=== PATIENT | female | born 1935 | race Caucasian/White ===

== ENCOUNTER → 2017-07-18 12:33 | Outpatient (CLI) | payer MEDICARE, SELFPAY ==
--- NOTE | 2017-07-18 12:40 | CA_ITS ---
PROCEDURE: 2-D M-mode and color Doppler study INDICATIONS FOR THE TEST: Chest pain COPD Heart Murmur Tobacco Smoking Palpitations Fatigue Syncope Edema HypertensionXDiabetes Mellitus Rheumatic Fever SOB MATAMOROS Obesity HyperlipidemiaX Family History HD Additional History PATIENT INFORMATION HEIGHT: 65 WEIGHT:115 GENDER: Female B/P:125/60 2-D/M-MODE INTERPRETATION: 2-D MEASUREMENTS OBSERVED VALUES IN CMS Right Ventricular Dimension (RVDd) 1.5 Interventricular Septum (Thickness)(IVsd) .8 Left Ventricular Internal Dimensions(LVIDd) 5.6 Left Ventricular Posterior Wall (Thickness)(LVPWd) .8 Aortic Root 3.0 Aortic Cusp Separation 1.6 Left Atrial Dimensions (LAD) 3.2 2D 1. Left atrium is moderately enlarged, left ventricle is normal size, there is mild qualitative concentric left ventricular hypertrophy, visually estimated ejection fraction 55% with no obvious regional wall motion abnormality. 2. The right atrium is moderately enlarged, right ventricle is mildly dilated with normal contractility. 3. The aortic valve is thickened and calcified leaflet continue to display good mobility. 4. The mitral and tricuspid valve leaflets are minimally thickened. 5. The pulmonic valve is poorly visualized. 6. No significant pericardial effusion noted. DOPPLER INTERROGATION: Doppler interrogation of the aortic, mitral and tricuspid valvular presence of moderate aortic, moderate mitral and moderate tricuspid regurgitation, calculated right ventricular systolic pressure is 45 to 50 mmHg consistent with moderate pulmonary hypertension, diastolic parameters are inconclusive. CONCLUSION: 1. Moderate biatrial enlargement, normal left ventricular size, mild concentric left ventricular hypertrophy, visually estimated ejection fraction 55% with no obvious regional wall motion abnormality, diastolic parameters are inconclusive. 2. Moderate aortic, moderate mitral and mild tricuspid regurgitation, calculated right ventricular systolic pressure is 45 to 50 mmHg consistent with moderate pulmonary hypertension 3. No significant pericardial effusion noted.
== END ==
PROVIDERS: Family Provider Internal Medicine; PCP Internal Medicine; Visit Provider Physician Assistant
DX: I35.0 Nonrheumatic aortic (valve) stenosis (principal)
CPT/HCPCS: 93306

== ENCOUNTER 2017-07-21 08:00 | Outpatient (RCR) | payer MEDICARE, SELFPAY ==
--- NOTE | 2017-06-29 08:44 | HMH.RHREAS ---
Rehab Reassessment Rehab OP Re-assessment Start: 06/29/17 08:36 Freq: Status: Active Protocol: Document 06/29/17 08:36 ITALIA (Rec: 06/29/17 08:44 ITALIA [id number]) Electronically Signed By Erlinda Doll OT 06/29/17 08:36 Rehab Re-assessment Subjective Subjective I see an improvement that's for sure. Objective Objective Notes Pt continues to be seen for skilled OT 2x's a week. Pt engages in right shoulder AROM /AAROM/Strengthening exercises each session. Pt also receives modalities such as IFC e-stim to help decrease pain and inflammation. Assessment Progress Assessment Progressing as Expected Assessment Notes Pt's pain has improved significantly. Pt reports pain only at 1/10. Pt's AROM has also improved at right shoulder compared to initial evaluation. MMT has mostly stayed the same. Will continue to work towards increasing strength to hopefully maintain improvements. Patient goals met N/A Goals Not Met Some AROM goals and MMT goals for right shoulder Revised Goals Right Shoulder MMT Goal: Flexion: 5- Abduction: 5- ER: 5- IR: 5- Right Shoulder AROM Goal Flexion: 160 degrees Abduction: 160 degrees (met) ER: 90 degrees IR: 80 degrees Plan Plan Continue with OT Plan of care. Frequency of Therapy 2 times a week Duration of therapy 4 more weeks Time and Billing Re-Eval Time 15 Re-Eval Billing Units 1 PHYSICIAN CERTIFICATION: I certify the specified therapy services for Kendra Gabriel are required, authorized, and reviewed every 30 days.
== END 2017-07-21 08:01 | disposition home or self-care (01) ==
LOC: OT 08:00
PROVIDERS: Family Provider Internal Medicine; PCP Internal Medicine; Visit Provider Internal Medicine
DX: M75.51 Bursitis of right shoulder (principal)
CPT/HCPCS: 97014; 97110; 97164; G0283

== ENCOUNTER → 2019-02-12 10:50 | Outpatient (CLI) | payer MEDICARE, SELFPAY ==
--- NOTE | 2019-02-12 10:57 | XR_ITS ---
PROCEDURE: XR CHEST 2V CLINICAL HISTORY: CHF, MODERATE TO SEVERE AORTIC REGURGITATION COMPARISON: ABDPELW/O CT ABD PELVIS W/O CONTRAST from 01/01/2015 CXR CHEST(2 VIEWS-NOT PORTABLE) from 08/04/2015 CXR CHEST(2 VIEWS-NOT PORTABLE) from 07/12/2016 FINDINGS: Mild cardiomegaly without failure. No lobar consolidation or collapse. Nodular opacity is present in the right mid lung and may be due to summation density from overlapping vessels or stable right midlung nodule unchanged from 08/04/2015. Minimal atelectatic changes are present in the left lung base. There is an S shaped curvature of the thoracic spine with degenerative change. No acute bony abnormalities. IMPRESSION: Cardiomegaly with chronic changes, no acute finding Dictated by: Terrence Bear MD 02/12/2019 15:12 Electronically signed by Terrence Bear MD in [place] 02/12/2019 15:12
--- NOTE | 2019-02-12 11:21 | ECG_ITS ---
APPROVED REPORT Exam: Resting ECG HR:61 bpm ECG Measurements Heart Rate [address] 114 P 70 QRSd 106 QRS 77 QT 406 T 72 QTc 408 <Conclusion> Normal sinus rhythm Incomplete right bundle branch block Voltage criteria for left ventricular hypertrophy Abnormal ECG Electronically signed by : Jose Ramon Cruz, 02/12/2019 16:15:04
== END ==
PROVIDERS: PCP Internal Medicine; Visit Provider Internal Medicine
DX: I50.9 Heart failure, unspecified (principal); I35.1 Nonrheumatic aortic (valve) insufficiency
CPT/HCPCS: 71046; 93005

== ENCOUNTER → 2019-02-19 12:49 | Outpatient (CLI) | payer MEDICARE, SELFPAY ==
--- NOTE | 2019-02-19 12:51 | XR_ITS ---
PROCEDURE: XR DEXA AXIAL SKELETON CLINICAL HISTORY: POST MENAPAUSAL COMPARISON: No exams were available for comparison FINDINGS: L1-L4 density is 1.064 grams/centimeters sq with a T-score -1.0. Total right hip density is 0.735 grams/centimeters sq with T-score -2.2 consistent with osteopenia. IMPRESSION: Osteopenia with moderate fracture risk. Treatment advised. Suggest follow-up exam February 2021. Dictated by: Terrence Bear MD 02/20/2019 04:34 Electronically signed by Terrence Bear MD in [place] 02/20/2019 04:34
== END ==
PROVIDERS: PCP Internal Medicine; Visit Provider Internal Medicine
DX: Z78.0 Asymptomatic menopausal state (principal)
CPT/HCPCS: 77080

== ENCOUNTER → 2019-03-02 12:42 | Outpatient (CLI) | payer MEDICARE, SELFPAY ==
--- NOTE | 2019-03-02 12:55 | CA_ITS ---
APPROVED REPORT Right Of Way Worker: CT Laterality: Bilateral Study Quality: Good Indications: right carotid bruit Risk Factors Hypertension: Hyperlipidemia Doppler Spectral Velocity Analysis ECA (R) 44.10/ cm/s ECA (L) 56.50/ cm/s dICA (R) 63.10/21.60 cm/s dICA (L) 66.40/16.90 cm/s Simone (R) 54.40/17.30 cm/s Simone (L) 73.10/18.50 cm/s pICA (R) 51.90/15.40 cm/s pICA (L) 48.30/12.20 cm/s dCCA (R) 60.10/17.10 cm/s dCCA (L) 55.00/12.80 cm/s pCCA (R) 66.00/11.80 cm/s pCCA (L) 82.50/15.70 cm/s Vert (R) 61.80/ cm/s Vert (L) 41.30/ cm/s ICA/CCA 1.05 ICA/CCA 1.33 Findings Duplex evaluation demonstrates stenosis of the right proximal internal carotid artery <20% with PSV <140 cm/sec, EDV <100 cm/sec, and IC/CC Ratio <4.0 Duplex evaluation demonstrates stenosis of the left proximal internal carotid artery <20% with PSV <140 cm/sec, EDV <100 cm/sec, and IC/CC Ratio <4.0. Duplex evaluation demonstrates antegrade flow of the bilateral Vertebral Arteries. Conclusion Duplex evaluation demonstrates stenosis of the right proximal internal carotid artery <20% with PSV <140 cm/sec, EDV <100 cm/sec, and IC/CC Ratio <4.0 Duplex evaluation demonstrates stenosis of the left proximal internal carotid artery <20% with PSV <140 cm/sec, EDV <100 cm/sec, and IC/CC Ratio <4.0. Duplex evaluation demonstrates antegrade flow of the bilateral Vertebral Arteries. Electronically signed by : Tarun Villela, 03/05/2019 13:46:30
--- NOTE | 2019-03-02 12:55 | CA_ITS ---
APPROVED REPORT EXAM: Comprehensive 2D, Doppler, and color-flow Echocardiogram Metal Turner: Justine Hernandez RT(R) Ht: 5 ft 0 in Wt: 112lbs BSA: 1.46 BP: 160/67 mmHg Indications: Murmur, Shortness of Breath, Peripheral Edema, Hyperlipidemia, Hypertension/HDD 2D Dimensions IVSd 0.90 cm F: 0.6-1.0 LVEF (Visual) 55.90 % PWd 1.00 cm F: 0.6 - 1.0 LVDd 3.20 cm F: 3.9 - 5.3 LVDs 2.30 cm F: 2.2 - 3.5 LVOT 2.10 cm (M/F) 1.5-2.5 M-Mode Dimensions LA Diam 3.40 cm (1.9-4.0) Ao Diam 2.50 cm (2.0-3.7) AV Cusp 1.50 cm (1.5-2.6) LV Diastology E/A Ratio 0.6 Aortic Valve LVOT Max 104.00 (70-110 cm/s) LVOT VTI 18.30 cm AoV Peak Joss. 160.00 (50-130 cm/s) AO Peak GR. 10.00 mmHg AO Mean GR. 5.00 (<5 mmHg) AO VTI 29.80 (18-25 cm) AIMEE (VTI) 2.12 (2.5-4.5 cm2) Mitral Valve MV E Max Joss. 48.90 (40-130 cm/s) MV A Velocity 75.80 (40-130 cm/s) E/A Ratio 0.60 Tricuspid Valve TR P. Velocity 256.00 cm/s RAP Estimate 15.00 mmHg RVSP 41.00 mmHg Left Ventricle Left atrium is mildly enlarged, left ventricle is normal size, mild concentric left ventricular hypertrophy, visually estimated ejection fraction 55% with no regional wall motion abnormality, Doppler evidence of impaired LV relaxation seen, there is no tissue Doppler performed. Right Ventricle Right atrium and right ventricular normal size and contractility. Aortic Valve Aortic valve is thickened and calcified leaflet continue to display good mobility, there is no aortic stenosis, there is mild aortic insufficiency. Mitral Valve Mitral valve is grossly normal, there is mild mitral regurgitation. Tricuspid Valve Tricuspid valve is grossly normal, there is mild tricuspid regurgitation. Pulmonic Valve Pulmonic valve is poorly visualized. Great Vessels Aortic root is normal size. Pericardium No significant pericardial effusion noted. Conclusion 1. Mildly enlarged left atrium, normal left ventricular size, mild concentric left ventricular hypertrophy, visually estimated ejection fraction 55% with no regional wall motion abnormality, Doppler evidence of impaired LV relaxation seen, there is no tissue Doppler performed. 2. Mild aortic, mild mitral and tricuspid regurgitation. 3. No significant pericardial effusion noted. Electronically signed by : Amrit Osorio, 03/02/2019 15:44:10
== END ==
PROVIDERS: PCP Internal Medicine; Visit Provider Internal Medicine Cardiovascular Disease
DX: I45.10 Unspecified right bundle-branch block (principal); K21.9 Gastro-esophageal reflux disease without esophagitis; R01.1 Cardiac murmur, unspecified; R06.00 Dyspnea, unspecified; R60.9 Edema, unspecified; R09.89 Other specified symptoms and signs involving the circulatory and respiratory systems
CPT/HCPCS: 36415; 83880; 93306; 93880

== ENCOUNTER 2020-02-09 12:12 | Emergency (ER) | payer MEDICARE, SELFPAY ==
[2020-02-09 12:14] VITALS: BP 119/90; PULSE 90; RESP 18; TEMP 36.6; O2SAT 100; BMI 18.3
--- NOTE | 2020-02-09 12:38 | HMH.EDGENADL ---
ED Disposition Clinical Impression: Left leg swelling Hypertension Qualifiers: Hypertension type: essential hypertension Qualified Code(s): I10 - Essential (primary) hypertension Disposition: Home, Self-Care Condition on Discharge: Good Instructions: DI for Edema Due to Venous Stasis, DI for High Blood Pressure Referrals: Jose Ramon Cruz [Primary Care Provider] - 3 days - Critical Care Critical Care Time: No Attestation: On 02/09/20, the high probability of a clinically significant, sudden or life threatening deterioration of the following system(s) required my full and direct attention, intervention and personal management. The time I documented below is in addition to time spent performing reported procedures but includes the following listed in this critical care notation. Medical Decision Making - Medical Records Medical records reviewed: Yes: I reviewed the patient's medical records. - Davi Inquiry Pt receiving controlled substance: No ( ) Davi was queried for this patient: No Vital Signs: 02/09/20 12:14 Temperature 98 F Temperature Source Oral Pulse Rate [Right] 90 Respiratory Rate 18 Blood Pressure [Right Arm] 119/90 Blood Pressure Mean [Right Arm] 99 02 Sat by Pulse Oximetry 100 - Lab Data Lab results reviewed: Yes: I reviewed the patient's lab results. Lab Results 02/09/20 13:15: WBC 5.2, RBC 4.38, Hgb 13.9, Hct 40.0, MCV 91.2, MCH 31.7 H, MCHC 34.8, RDW 13.4, Plt Count 178, MPV 7.8, Neut % (Auto) 64.3, Lymph % (Auto) 26.2, Kaufman % (Auto) 5.8, Eos % (Auto) 3.1, Baso % (Auto) 0.5, Neut # (Auto) 3.3, Lymph # (Auto) 1.4, Kaufman # (Auto) 0.3, Eos # (Auto) 0.2, Baso # (Auto) 0.0 02/09/20 13:15: D-Dimer 0.31 02/09/20 13:15: Sodium 140, Potassium 4.3, Chloride 102, Carbon Dioxide 32 H, Anion Gap 10.3, BUN 16, Creatinine 0.70, Estimated Creat Clear 33, Estimated GFR 80, Est GFR ( Amer) 96, Glucose 125 H, Calcium 10.1 Result diagrams: 02/09/20 13:15 02/09/20 13:15 Medical Decision Narrative: Patient here with concerns of her blood pressure which has been normal here. She denies any associated symptoms that would make me suggest ACS or CVA. She complains of left lower extremity swelling without real pain. Her d-dimer is negative and she has no calf tenderness, unlikely DVT. Possible disproportionate venous return on bilateral lower extremities, but appropriate for outpatient follow-up with primary care provider. Discharged home. General Adult HPI - General Chief complaint: Recheck/Abnormal Lab/Rx Stated complaint: high bp Time Seen by Provider: 02/09/20 12:30 Mode of Arrival: Ambulatory Source of Information: Patient, Medical Record Limitations: No Limitations Description of Symptoms (Recalled from ER Triage Doc. by RN): PT STATES SHE TOOK HER B/P THIS MORNING AND IT WAS 180 ON THE TOP NUMBER, PT STATES SHE HAS NEVER HAD ITBE THIS HIGH BUT DOES TAKE BP MEDS, STATES SHE TOOK THEM THIS MORNING. PT STATES SHE ALSO HAS SWELLING IN HER ANKLES. - History of Present Illness HPI narrative: This is an 84-year-old female with a past medical history significant for hypertension, hyperlipidemia who presents to the emergency department for evaluation of the left lower extremity swelling over the last several weeks with a sensation up my leg , but no pain and for elevated blood pressure this morning. Patient states that she took her blood pressure this morning at home, but when she checked her pressure at home it was elevated at 180 systolic. She denies any chest pain, shortness of breath. No lateralizing motor or sensory changes. Her blood pressure here is 133 systolic. She denies any known history of DVT and has no chest pain or shortness of breath. - Related Data Home Medications Medication Instructions Recorded Confirmed aspirin 81 mg tablet,delayed 81 mg PO DAILY 02/21/19 03/22/19 release atorvastatin 20 mg
[2020-02-09 13:20] LABS: Basophils % 0.5 % (0.1-2.0); Eosinophils # 0.2 K/mm3 (0.0-0.4); Eosinophils % 3.1 % (0.1-12.0); Hemoglobin 13.9 g/dL (12.2-16.2); Lymphocytes # 1.4 K/mm3 (0.7-4.5); Lymphocytes % 26.2 % (10-50); Mean Corpuscular HGB Conc 34.8 g/dL (31.8-35.4); Mean Corpuscular Hemoglobin 31.7 pg (27.0-31.2); Mean Corpuscular Volume 91.2 fl (81-99); Mean Platelet Volume 7.8 fl (7.4-10.4); Monocytes # 0.3 K/mm3 (0.1-1.0); Monocytes % 5.8 % (1.7-9.3); Neutrophils # 3.3 K/mm3 (1.8-7.8); Neutrophils % 64.3 % (37.0-80.0); Platelet Count 178 K/mm3 (142-424); Red Blood Count 4.38 M/mm3 (4.20-5.40); Red Cell Distribution Width 13.4 % (11.5-17.5); White Blood Count 5.2 K/mm3 (4.8-10.8)
[2020-02-09 13:29] LABS: Anion Gap 10.3 mEq/L (5-15); Blood Urea Nitrogen 16 mg/dl (7-17); Calcium 10.1 mg/dl (8.4-10.2); Carbon Dioxide 32 mmol/L (22.0-30.0); Chloride 102 mmol/L (98-107); Creatinine Clearance Estimated 33 mL/min (50-200); Estimated Glomerular Filt Rate 80 ml/min (>60); GFR (African American) 96 ML/MIN (>60); Glucose 125 mg/dl (74-100); Potassium 4.3 mmoL/L (3.5-5.1); Sodium 140 mmol/L (136-145)
[2020-02-09 13:33] LABS: D-Dimer 0.31 ug/mL (0.15-8.0)
[2020-02-09 14:16] VITALS: BP 152/76; PULSE 82; RESP 17; TEMP 36.8; O2SAT 100
== END 2020-02-09 14:17 | disposition home or self-care (01) ==
PROVIDERS: Emergency Provider Emergency Medicine; PCP Internal Medicine
DX: R60.0 Localized edema (principal); I10 Essential (primary) hypertension; E78.5 Hyperlipidemia, unspecified; K21.9 Gastro-esophageal reflux disease without esophagitis; Z88.2 Allergy status to sulfonamides; Z79.899 Other long term (current) drug therapy
CPT/HCPCS: 80048; 85025; 85378; 99282

== ENCOUNTER → 2020-08-19 10:12 | Outpatient (POV) | payer MEDICARE, SELFPAY | PROVIDERS: Visit Provider Dermatology | DX: Z00.00 Encounter for general adult medical examination without abnormal findings (principal) ==

== ENCOUNTER → 2020-11-17 08:19 | Outpatient (CLI) | payer MEDICARE, SELFPAY ==
--- NOTE | 2020-11-17 08:28 | XR_ITS ---
PROCEDURE: XR CHEST 2V CLINICAL HISTORY: CHF,AORTIC VALVE INSUFFICIENCY COMPARISON: CR CXR CHEST(2 VIEWS-NOT PORTABLE) from 08/04/2015 CR CXR CHEST(2 VIEWS-NOT PORTABLE) from 07/12/2016 CR XR CHEST 2V from 02/12/2019 FINDINGS: Heart is mildly enlarged and there is mild pulmonary vascular congestion. Mild bibasilar scar versus atelectasis. No pleural effusion or pneumothorax. No acute bony abnormality. Mild dextroscoliosis of the thoracic spine. IMPRESSION: Mild cardiomegaly with mild pulmonary vascular congestion. Mild bibasilar scar versus atelectasis. Dictated by: Newton Hines 11/17/2020 08:39 Newton Hines in [place] 11/17/2020 08:39
== END ==
PROVIDERS: PCP Internal Medicine; Visit Provider Internal Medicine
DX: R07.9 Chest pain, unspecified (principal); I50.22 Chronic systolic (congestive) heart failure; I35.1 Nonrheumatic aortic (valve) insufficiency; I11.0 Hypertensive heart disease with heart failure
CPT/HCPCS: 71046

== ENCOUNTER → 2021-01-23 07:49 | Outpatient (CLI) | payer MEDICARE, SELFPAY ==
--- NOTE | 2021-01-23 07:55 | MM_ITS ---
PROCEDURE: MM DIG SCREENING MAMM BI W/CAD Digital Breast Tomosynthesis Included CLINICAL INDICATION: SCREENING COMPARISON: MG MY Digital Screen BILAT from 12/04/2018 MG MY Digital Screen BILAT from 01/23/2020 TECHNIQUE: Standard CC and MLO images and 3D Tomosynthesis was obtained. R2 CAD reviewed. FINDINGS: There is heterogeneously dense fibroglandular tissue which decreases the sensitivity of mammography. Scattered areas of asymmetric fibroglandular tissue noted. Benign-appearing nodule lower inner left breast anterior 1/3 at 4 mm not significantly changed. IMPRESSION: Benign findings. No change with no evidence of malignancy. BI-RAD Category: 2 Benign Finding FOLLOW-UP: 1 YR 1 Year Follow-up (A letter has been sent to the patient regarding results of the study.) Dictated by: Terrence Bear MD 01/29/2021 08:51 Terrence Bear MD in [place] 01/29/2021 08:51
== END ==
PROVIDERS: PCP Internal Medicine; Visit Provider Internal Medicine
DX: Z12.31 Encounter for screening mammogram for malignant neoplasm of breast (principal)
CPT/HCPCS: 77063; 77067

== ENCOUNTER → 2021-03-19 14:02 | Outpatient (CLI) | payer MEDICARE, SELFPAY ==
[2021-03-19 14:52] LABS: Anion Gap 7.2 mEq/L (5-15); Blood Urea Nitrogen 17 mg/dl (7-17); Calcium 9.9 mg/dl (8.4-10.2); Carbon Dioxide 35 mmol/L (22.0-30.0); Chloride 100 mmol/L (98-107); Estimated Glomerular Filt Rate 68 ml/min (>60); GFR (African American) 82 ML/MIN (>60); Glucose 101 mg/dl (74-100); Potassium 4.2 mmoL/L (3.5-5.1); Sodium 138 mmol/L (136-145)
[2021-03-19 15:01] LABS: NT Pro Brain Natriuretic Pep. 423 pg/mL (0-450)
== END ==
PROVIDERS: Visit Provider Physician Assistant
DX: J81.1 Chronic pulmonary edema (principal); R06.00 Dyspnea, unspecified
CPT/HCPCS: 36415; 80048; 83880

== ENCOUNTER → 2021-04-08 11:30 | Outpatient (CLI) | payer MEDICARE, SELFPAY ==
--- NOTE | 2021-04-08 | CA_ITS ---
APPROVED REPORT Exam: Pharmacologic Technologist: LUBNA ROWELL, Ht: 5 ft 0 in Wt: 114 lbs BSA: 1.47 m2 HR: 62 bpm BP: 131/67 mmHg Rhythm: NSR, RBBB, RIGHT AXIS DEVIATION Indications: ChF, cad Medical History Medical History: HTN, Hyperlipidemia Medications: Asa,,,,, Gabapentin,,,,, Losartan,,,,, Atorvastatin,,,,, HCTZ,,,,, Carvedilol,,,,, FluTICASONE,,,,, LanTanaprost,,,,, CHOLECALCIFEROL,,,,, Calcium CaRBONATE,,,,, Allergies: SULFA Cardiac Risk Factors: HTN, Hyperlipidemia Stress Test Details Test: LEXISCAN HR Resting HR: 63 bpm Max Heart Rate (APMHR): 135.186271 bpm Max HR Achieved: 98 bpm Target HR (85% APMHR): 114.267262 bpm % of APMHR: 72.59 Recovery HR: 81 bpm BP Resting BP: 131/67 mmHg Max BP: 131/67 mmHg Recovery BP: 102.0/58.0 mmHg ECG Resting ECG: NSR, RBBB, RIGHT AXIS DEVIATION Clinical Exercise duration: 04:02 min Highest Stage Achieved: Exercise capacity: 1.0 METs Stress ECG Conclusion PT HAD MILD SOA, [place]. NO CP. RARE PVC. 1MM DOWNSLOPING ST DEPRESSION INTERIORLY. EXAGGERATION OF ANTERIOR LEAD ABNS. NON-DIAGNOSTIC LEXISCAN STRESS. MYOVIEW IMAGES RPEORTED SEPARATELY. Test Summary RECOVERY 04:00 . . 92 . 108/ 53 . . Stage 1 01:00 . . 75 . . . . Stage 2 01:00 . . 96 . 97/ 53 . . Stage 3 01:00 . . 94 . 108/ 56 . . Stage 4 01:00 . . 85 . 106/ 50 . . Stage 4 01:02 . . 85 . 106/ 50 . Stop exercise at 04:02 RECOVERY 01:00 . . 87 . 110/ 53 . . RECOVERY 02:00 . . 90 . 110/ 53 . . RECOVERY 03:00 . . 93 . 108/ 53 . . RECOVERY 04:00 . . 92 . 108/ 53 . . RECOVERY 05:00 . . 92 . 108/ 53 . . RECOVERY 06:00 . . 89 . 108/ 53 . . RECOVERY 07:00 . . 89 . 108/ 53 . . RECOVERY 08:00 . . 84 . 108/ 53 . . RECOVERY 08:30 . . 89 . 102/ 58 . . Electronically signed by : Amrit Osorio MD 04/09/2021 13:40:07
--- NOTE | 2021-04-08 11:31 | NM_ITS ---
APPROVED REPORT Exam: Nuclear Stress Test Indication: HTN, HYPERLIPIDEMIA, SOB Patient Location: Outpatient Stress Tech: Tanvi Hunter ME Tech:Joann Ibanez, ARRT, RT (R)(N) Ht: 5 ft 5 in Wt: 114 lbs Bra Size: 32C HR: 62 bpm BP: 131/67 mmHg BSA: 1.56 m2 BMI: 18.9 History: HTN, HYPERLIPIDEMIA, SOB Procedure: Patient received a 0.4 mg of intravenous Lexiscan, resting heart rate 62 bpm, resting blood pressure 131/67 mmHg, with Lexiscan maximum heart rate achived was 85 bpm which is Less than 85 % of the maximum predicted heart rate and blood pressure was 106/50 mmHg. With Lexiscan, patient denied any complaint of chest pain. Electrocardiogram Resting electrocardiogram shows sinus rhythm right bundle branch block, with Lexiscan there is less than 1.[address] segment depression noted from the baseline EKG. The EKG portion of the Lexiscan is nondiagnostic. Cardiac Stress and Resting SPECT Images: Cardiac Stress and Resting SPECT images were obtained using technetium 99m Myoview 31.8 mCi stress and 9.67 mCi at rest. Gated SPECT for analysis of segmental wall motion and calculation of the ejection fraction also done. Cardiac stress and rest SPECT images show mild fixed defect in the anterior wall with normal contractility on gated SPECT is likely secondary to soft tissue attenuation, no reversible ischemia seen, computer derived ejection fraction is 58% with no regional wall motion abnormality, right ventricle is normal size and contractility. Conclusion: 1. The EKG portion of the Lexiscan is nondiagnostic. 2. No scintigraphic evidence of reversible ischemia seen, computer derived ejection fraction is 58% with no regional wall motion abnormality, right ventricle is normal size and contractility 3. Likely normal Lexiscan Myoview study. Electronically signed by : Amrit Osorio MD 04/09/2021 13:42:42
--- NOTE | 2021-04-08 13:43 | HMH.ITSHM ---
Current Home Medications as stated by this patient Kendra Warner or visitor services representative. []CARVEDILOL LOSARTAN ATORVASTATIN FLUTICASONE ASA GABAPENTIN HCTZ CALCIUM VITAMIN D
--- NOTE | 2021-04-08 14:08 | CA_ITS ---
APPROVED REPORT EXAM: Comprehensive 2D, Doppler, and color-flow Echocardiogram Service Order Dispatcher: Justine Hernandez RT(R) Ht: 5 ft 3 in Wt: 114lbs BSA: 1.52 BP: 109/60 mmHg Indications: edema, HTN, murmur, SOB, MATAMOROS, hyperlipidemia 2D Dimensions LVOT 1.87 cm (M/F) 1.5-2.5 LA Volume 34.30 mL LA Volume Index 22.56 mL/m2 (M/F) 16-34 M-Mode Dimensions RVDd 2.93 cm (0.9-2.6) LA Diam 3.37 cm (1.9-4.0) LVDd 3.39 cm (3.5-5.7) Ao Diam 2.73 cm (2.0-3.7) LVDs 2.57 cm (3.5-5.7) IVSd 0.86 cm (0.6-1.1) PWd 0.75 cm (0.6-1.1) EF (Teich) 49.30% FS 24.20% EDV (Teich) 47.10 mL ESV (Teich) 23.90 mL LV Diastology E Decel Time 270.00 (160-240 msec) E/A Ratio 0.7 MED E' 6.60 (< 7 cm/sec) E'/MED E' Ratio 6.47 (>14) LAT E' 8.40 (<10 cm/sec) E/LAT E' Ratio 5.08 (>14) Aortic Valve LVOT Max 81.00 (70-110 cm/s) LVOT VTI 16.24 cm AoV Peak Joss. 150.00 (50-130 cm/s) AI PHT 592.00 ms AO Peak GR. 9.10 mmHg AO Mean GR. 4.40 (<5 mmHg) AO VTI 28.94 (18-25 cm) AIMEE (VTI) 1.54 (2.5-4.5 cm2) Mitral Valve MV E Max Joss. 43.00 (40-130 cm/s) MV A Velocity 64.00 (40-130 cm/s) E/A Ratio 0.67 MV Decel. Time 270.00 (160-240 ms) MV PHT 79.00 ms Tricuspid Valve TR P. Velocity 241.00 cm/s RAP Estimate 15.00 mmHg RVSP 38.30 mmHg Left Ventricle Left atrium is mildly enlarged, left ventricle is normal size, mild concentric left ventricular hypertrophy, visually estimated ejection fraction 55% with no regional wall motion abnormality, grade 1 diastolic dysfunction seen without tissue Doppler evidence of raise left atrial pressure. Right Ventricle Right atrium and right ventricle mildly enlarged with normal contractility. Aortic Valve Aortic valve is minimally thickened and fibrosed, there is no aortic stenosis, there is mild aortic insufficiency. Mitral Valve Mitral valve grossly normal, there is trace mitral regurgitation. Tricuspid Valve Tricuspid grossly normal, there is trace tricuspid regurgitation, calculated right ventricular systolic pressure is 38 mmHg. Pulmonic Valve Pulmonic valve is poorly visualized. Great Vessels Aortic root is normal size. Inferior vena cava is poorly visualized. Pericardium No significant pericardial effusion noted. Conclusion 1. Mild biatrial alignment, normal left ventricular size, mild concentric left ventricular hypertrophy, visually estimated ejection fraction 55% with no regional wall motion abnormality, grade 1 diastolic dysfunction seen without tissue Doppler evidence of raise left atrial pressure. 2. Mildly enlarged right ventricle with normal contractility. 3. Trace mitral and tricuspid regurgitation, calculated right ventricular systolic pressure 38 mmHg 4. Minimally thickened and calcified aortic valve without aortic stenosis, there is mild aortic insufficiency. 5. No significant pericardial effusion noted. 6. Inferior vena cava is poorly visualized. Electronically signed by : Amrit Osorio MD 04/09/2021 13:45:29
== END ==
PROVIDERS: PCP Internal Medicine; Visit Provider Physician Assistant
DX: R06.00 Dyspnea, unspecified (principal); I07.1 Rheumatic tricuspid insufficiency
CPT/HCPCS: 78452; 93017; 93306; A9502; J2785

== ENCOUNTER → 2021-05-11 15:22 | Outpatient (CLI) | payer MEDICARE, SELFPAY ==
[2021-05-11 16:36] LABS: Alanine Aminotransferase 14 U/L (12-78); Albumin/Globulin Ratio 1.6 (1.1-1.8); Alkaline Phosphatase 50 U/L (38-126); Anion Gap 8.5 mEq/L (5-15); Aspartate Amino Transferase 26 U/L (14-36); Bilirubin,Total 0.5 mg/dl (0.2-1.3); Blood Urea Nitrogen 20 mg/dl (7-17); Calcium 9.8 mg/dl (8.4-10.2); Carbon Dioxide 33 mmol/L (22.0-30.0); Chloride 101 mmol/L (98-107); Chol/HDL Ratio 1.9 (1-3.5); Cholesterol 143 mg/dl (140-200); Estimated Glomerular Filt Rate 47 ml/min (>60); GFR (African American) 57 ML/MIN (>60); Globulin 2.5 g/dL (1.3-3.2); Glucose 100 mg/dl (74-100); HDL Cholesterol 75 mg/dl (40-60); Potassium 3.5 mmoL/L (3.5-5.1); Sodium 139 mmol/L (136-145); Total Protein,Serum 6.5 g/dl (6.3-8.2); Triglycerides 68 mg/dl (30-150); VLDL Cholesterol 14 mg/dL (0-40)
== END ==
PROVIDERS: Visit Provider Internal Medicine
DX: I50.22 Chronic systolic (congestive) heart failure (principal); I11.0 Hypertensive heart disease with heart failure; E78.5 Hyperlipidemia, unspecified
CPT/HCPCS: 80053; 80061

== ENCOUNTER 2021-08-05 08:00 | Outpatient (RCR) | payer MEDICARE, SELFPAY | END 2021-08-05 08:05 | disposition home or self-care (01) | LOC: PT 08:00 | PROVIDERS: PCP Internal Medicine; Visit Provider Internal Medicine | DX: M62.81 Muscle weakness (generalized) (principal); R26.9 Unspecified abnormalities of gait and mobility | CPT/HCPCS: 97010; 97014; 97110; 97112; 97163; 97164; 97535; G0283 ==

== ENCOUNTER → 2021-11-10 11:12 | Outpatient (CLI) | payer MEDICARE, SELFPAY ==
[2021-11-10 14:01] LABS: Basophils # 0.1 K/mm3 (0-0.2); Basophils % 1.5 % (0.1-2.0); Eosinophils # 0.2 K/mm3 (0.0-0.4); Eosinophils % 3.9 % (0.1-12.0); Hematocrit 40.8 % (37.0-47.0); Hemoglobin 13.6 g/dL (12.2-16.2); Lymphocytes # 1.3 K/mm3 (0.7-4.5); Lymphocytes % 30.1 % (10-50); Mean Corpuscular HGB Conc 33.3 g/dL (31.8-35.4); Mean Corpuscular Hemoglobin 31.4 pg (27.0-31.2); Mean Corpuscular Volume 94.5 fl (81-99); Mean Platelet Volume 8.5 fl (7.4-10.4); Monocytes # 0.3 K/mm3 (0.1-1.0); Monocytes % 7.5 % (1.7-9.3); Neutrophils # 2.4 K/mm3 (1.8-7.8); Platelet Count 188 K/mm3 (142-424); Red Blood Count 4.32 M/mm3 (4.20-5.40); Red Cell Distribution Width 13.7 % (11.5-17.5); White Blood Count 4.2 K/mm3 (4.8-10.8)
[2021-11-10 14:19] LABS: Alanine Aminotransferase 18 U/L (12-78); Albumin/Globulin Ratio 1.5 (1.1-1.8); Alkaline Phosphatase 49 U/L (38-126); Anion Gap 9.8 mEq/L (5-15); Aspartate Amino Transferase 28 U/L (14-36); Bilirubin,Total 0.5 mg/dl (0.2-1.3); Blood Urea Nitrogen 21 mg/dl (7-17); Calcium 9.8 mg/dl (8.4-10.2); Carbon Dioxide 34 mmol/L (22.0-30.0); Chloride 100 mmol/L (98-107); Chol/HDL Ratio 2.3 (1-3.5); Cholesterol 149 mg/dl (140-200); Estimated Glomerular Filt Rate 59 ml/min (>60); GFR (African American) 72 ML/MIN (>60); Globulin 2.6 g/dL (1.3-3.2); Glucose 97 mg/dl (74-100); HDL Cholesterol 66 mg/dl (40-60); Potassium 3.8 mmoL/L (3.5-5.1); Sodium 140 mmol/L (136-145); Total Protein,Serum 6.6 g/dl (6.3-8.2); Triglycerides 85 mg/dl (30-150); VLDL Cholesterol 17 mg/dL (0-40)
[2021-11-10 14:30] LABS: Direct LDL Cholesterol 51.82 mg/dL (100-129)
== END ==
PROVIDERS: PCP Internal Medicine; Visit Provider Internal Medicine
DX: I50.22 Chronic systolic (congestive) heart failure (principal); I35.1 Nonrheumatic aortic (valve) insufficiency; I11.0 Hypertensive heart disease with heart failure; E78.5 Hyperlipidemia, unspecified; G60.9 Hereditary and idiopathic neuropathy, unspecified
CPT/HCPCS: 80053; 80061; 85025

== ENCOUNTER → 2022-01-25 09:24 | Outpatient (CLI) | payer MEDICARE, SELFPAY ==
--- NOTE | 2022-01-25 09:37 | MM_ITS ---
PROCEDURE INFORMATION: Exam: MG Bilateral Screening 3D Mammography Exam date and time: 01/25/2022 9:32 AM Age: 86 years old Clinical indication: Screening examination. Her mother had breast cancer at age 72 and her sister had breast cancer at age 64. TECHNIQUE: Imaging protocol: Bilateral Screening tomosynthesis and 2D mammography including computer-aided detection (CAD) when performed. COMPARISON: 1. MG MM DIG SCREENING MAMM BI W/CAD 01/23/2021 8:06 AM 2. MG MY Digital Screen BILAT 01/23/2020 9:57 AM FINDINGS: MAMMOGRAPHY: Breast composition: The breasts are heterogeneously dense, which may obscure small masses. Mass: None. Architectural distortion: None. Calcifications: No suspicious calcifications. Asymmetric density: None. Skin thickening: None. Axillary adenopathy: None. IMPRESSION: No mammographic evidence of malignancy. Annual screening is recommended unless otherwise clinically indicated. ASSESSMENT: BI-RADS Category 1: Negative
== END ==
PROVIDERS: PCP Internal Medicine; Visit Provider Internal Medicine
DX: Z12.31 Encounter for screening mammogram for malignant neoplasm of breast (principal)
CPT/HCPCS: 77063; 77067

== ENCOUNTER → 2022-05-14 14:10 | Outpatient (CLI) | payer MEDICARE, SELFPAY ==
[2022-05-14 15:29] LABS: Alanine Aminotransferase 15 U/L (12-78); Albumin Level 4.2 g/dl (3.5-5.0); Albumin/Globulin Ratio 1.7 (1.1-1.8); Alkaline Phosphatase 67 U/L (38-126); Anion Gap 11.9 mEq/L (5-15); Aspartate Amino Transferase 26 U/L (14-36); Bilirubin,Total 0.6 mg/dl (0.2-1.3); Blood Urea Nitrogen 36 mg/dl (7-17); Calcium 10.2 mg/dl (8.4-10.2); Carbon Dioxide 30 mmol/L (22.0-30.0); Chloride 103 mmol/L (98-107); Chol/HDL Ratio 2.4 (1-3.5); Cholesterol 150 mg/dl (140-200); Estimated Glomerular Filt Rate 47 ml/min (>60); GFR (African American) 57 ML/MIN (>60); Globulin 2.5 g/dL (1.3-3.2); Glucose 91 mg/dl (74-100); HDL Cholesterol 63 mg/dl (40-60); Potassium 3.9 mmoL/L (3.5-5.1); Sodium 141 mmol/L (136-145); Total Protein,Serum 6.7 g/dl (6.3-8.2); Triglycerides 67 mg/dl (30-150); VLDL Cholesterol 13 mg/dL (0-40)
== END ==
PROVIDERS: PCP Internal Medicine; Visit Provider Internal Medicine
DX: I35.1 Nonrheumatic aortic (valve) insufficiency (principal); I10 Essential (primary) hypertension; E78.5 Hyperlipidemia, unspecified
CPT/HCPCS: 80053; 80061

== ENCOUNTER → 2022-10-01 13:52 | Outpatient (CLI) | payer MEDICARE, SELFPAY ==
--- NOTE | 2022-10-01 13:57 | CA_ITS ---
FINAL REPORT TECHNIQUE: Color Doppler, duplex Doppler and tovar scale sonography of the bilateral neck arterial vasculature was performed. Velocities were measured in the carotid arteries. Stenosis evaluation based on the validated velocity criteria. CLINICAL HISTORY: dizziness/audible palpitations. COMPARISON: None FINDINGS: The peak systolic velocity of the right common carotid artery is 72 cm/s. The peak systolic velocity of the right internal carotid artery is 138 cm/s and end diastolic velocity 39 cm/s. The ICA/CCA ratio is 2.50. A mild amount of plaque is present. The right external carotid artery is patent. The right vertebral artery is patent with antegrade flow. The peak systolic velocity of the left common carotid artery is 45 cm/s. The peak systolic velocity of the left internal carotid artery is 97 cm/s and end diastolic velocity 33 cm/s. The ICA/CCA ratio is 2.21. A mild amount of plaque is present. The left external carotid artery is patent.The left vertebral artery is patent with antegrade flow. IMPRESSION: Less than 50% bilateral carotid stenoses. Bilateral patent vertebral arteries with antegrade flow. If indicated, CTA or MRA could further evaluate. Reviewed, Interpreted and Dictated by Alejandro Holm III, MD Transcribed by Nini De Jesus Authenticated and [facility]
== END ==
PROVIDERS: PCP Internal Medicine; Visit Provider Nurse Practitioner
DX: I07.1 Rheumatic tricuspid insufficiency (principal); I10 Essential (primary) hypertension; I25.10 Atherosclerotic heart disease of native coronary artery without angina pectoris; I34.0 Nonrheumatic mitral (valve) insufficiency; I35.1 Nonrheumatic aortic (valve) insufficiency; I65.23 Occlusion and stenosis of bilateral carotid arteries; R42 Dizziness and giddiness; R60.0 Localized edema
CPT/HCPCS: 93306; 93880

== ENCOUNTER → 2022-10-13 11:00 | Outpatient (CLI) | payer MEDICARE, SELFPAY ==
[2022-10-13 14:16] LABS: Basophils % 0.6 % (0.1-2.0); Eosinophils # 0.2 K/mm3 (0.0-0.4); Eosinophils % 4.3 % (0.1-12.0); Hematocrit 40.1 % (37.0-47.0); Hemoglobin 13.2 g/dL (12.2-16.2); Lymphocytes # 1.1 K/mm3 (0.7-4.5); Lymphocytes % 25.1 % (10-50); Mean Corpuscular HGB Conc 32.8 g/dL (31.8-35.4); Mean Corpuscular Hemoglobin 30.3 pg (27.0-31.2); Mean Corpuscular Volume 92.3 fl (81-99); Mean Platelet Volume 8.6 fl (7.4-10.4); Monocytes # 0.3 K/mm3 (0.1-1.0); Monocytes % 6.8 % (1.7-9.3); Neutrophils # 2.7 K/mm3 (1.8-7.8); Neutrophils % 63.2 % (37.0-80.0); Platelet Count 193 K/mm3 (142-424); Red Blood Count 4.35 M/mm3 (4.20-5.40); Red Cell Distribution Width 13.4 % (11.5-17.5); White Blood Count 4.3 K/mm3 (4.8-10.8)
[2022-10-13 14:37] LABS: Alanine Aminotransferase 16 U/L (12-78); Albumin/Globulin Ratio 1.6 (1.1-1.8); Alkaline Phosphatase 52 U/L (38-126); Anion Gap 15.5 mEq/L (5-15); Aspartate Amino Transferase 26 U/L (14-36); Bilirubin,Total 0.5 mg/dl (0.2-1.3); Blood Urea Nitrogen 24 mg/dl (7-17); Calcium 9.5 mg/dl (8.4-10.2); Carbon Dioxide 32 mmol/L (22.0-30.0); Chloride 96 mmol/L (98-107); Chol/HDL Ratio 2.1 (1-3.5); Cholesterol 143 mg/dl (140-200); Estimated Glomerular Filt Rate 47 ml/min (>60); GFR (African American) 57 ML/MIN (>60); Globulin 2.5 g/dL (1.3-3.2); Glucose 92 mg/dl (74-100); HDL Cholesterol 68 mg/dl (40-60); Potassium 3.5 mmoL/L (3.5-5.1); Sodium 140 mmol/L (136-145); Total Protein,Serum 6.5 g/dl (6.3-8.2); Triglycerides 73 mg/dl (30-150); VLDL Cholesterol 15 mg/dL (0-40)
[2022-10-13 14:48] LABS: Direct LDL Cholesterol 60.31 mg/dL (100-129)
[2022-10-13 15:26] LABS: Vitamin B12 245 pg/mL (239-931)
== END ==
PROVIDERS: PCP Internal Medicine; Visit Provider Internal Medicine
DX: I50.22 Chronic systolic (congestive) heart failure (principal); I35.1 Nonrheumatic aortic (valve) insufficiency; I10 Essential (primary) hypertension; E78.5 Hyperlipidemia, unspecified
CPT/HCPCS: 80053; 80061; 82607; 85025

== ENCOUNTER → 2022-10-21 08:53 | Outpatient (CLI) | payer MEDICARE, SELFPAY ==
--- NOTE | 2022-10-21 08:56 | US_ITS ---
FINAL REPORT CLINICAL HISTORY: RT AND LT UQ PAIN FINDINGS: Sonographic images of the abdomen were obtained. The liver has an unremarkable appearance with normal echogenicity. There is an echogenic focus in the anterior gallbladder, may represent cholesterosis. There is soft tissue along the anterior aspect of the gallbladder, mass is not excluded. There is no evidence of biliary ductal dilatation. The common hepatic duct measures 2 mm, which is within normal limits. Limited images of the pancreas are unremarkable. The spleen size is normal. The right kidney measures 9.4 cm in length. There is a 1.2 cm cyst in the lower pole of the right kidney. The left kidney measures 8.4 cm in length. There is left renal cortical thinning. There is no evidence of hydronephrosis. The aorta has an unremarkable appearance. Limited images of the inferior vena cava are unremarkable. IMPRESSION: Soft tissue along the anterior aspect of the gallbladder, mass is not excluded. Recommend CT with contrast or follow-up ultrasound. Right renal cyst. Reviewed, Interpreted and Dictated by Alejandro Holm III, MD Transcribed by Muna Elise Authenticated and [facility]
== END ==
PROVIDERS: PCP Internal Medicine; Visit Provider Internal Medicine
DX: R10.12 Left upper quadrant pain (principal); R10.11 Right upper quadrant pain
CPT/HCPCS: 76700

== ENCOUNTER → 2022-10-29 10:58 | Outpatient (CLI) | payer MEDICARE, SELFPAY ==
--- NOTE | 2022-10-29 11:02 | FL_ITS ---
FINAL REPORT CLINICAL HISTORY: DEREK UQ PAIN fluoro time 1.08 FINDINGS: UPPER GI EXAM HISTORY: Abdominal pain, nausea. PROCEDURE: The patient ingested barium. Effervescent crystals were also administered. Spot and overhead films were obtained. FINDINGS: There is esophageal dysmotility. The esophagus is otherwise normal. There is no hiatal hernia. There is no gastroesophageal reflux. Peristalsis is normal. The rugal fold pattern of the stomach is normal. The duodenal bulb is normal. IMPRESSION: Esophageal dysmotility. Otherwise, unremarkable upper GI. Films reviewed , interpreted and dictated by Dr. Holm Transcribed by Dominic Blackburn PA-C. Reviewed, Interpreted and Dictated by Alejanrdo Holm III, MD Transcribed by DEEPAK Spencer Authenticated and [facility]
== END ==
PROVIDERS: PCP Internal Medicine; Visit Provider Internal Medicine
DX: R10.11 Right upper quadrant pain (principal); R10.12 Left upper quadrant pain
CPT/HCPCS: 74246

== ENCOUNTER → 2022-12-02 12:19 | Outpatient (CLI) | payer MEDICARE, SELFPAY ==
--- NOTE | 2022-12-02 12:22 | CT_ITS ---
FINAL REPORT TECHNIQUE: Axial CT images of the abdomen were obtained without contrast. Coronal reformatted images were also obtained.This study was performed with techniques to keep radiation doses as low as reasonably achievable (ALARA). Individualized dose reduction techniques using automated exposure control or adjustment of mA and/or kV according to the patient''s size were employed. CLINICAL HISTORY: ABN US,ABN SOFT TISSUE ANERIOR TO GB COMPARISON: Ultrasound dated 10/21/2022 FINDINGS: Mild scarring is seen in the lung bases. The liver has an unremarkable appearance, without evidence of mass. There is abnormal soft tissue in the gallbladder fundus which is suboptimally demonstrated on this noncontrast imaging with motion artifact. This soft tissue measures approximately 9 mm in thickness and may represent neoplasm or chronic inflammatory change. There is no evidence of biliary ductal dilatation. The pancreas appears normal. The spleen size is within normal limits. There is no evidence of renal stone or hydronephrosis. There is no evidence of adenopathy. No abnormal fluid collection is seen. Mild vascular calcifications are noted. IMPRESSION: Abnormal soft tissue in the gallbladder fundus may represent neoplasm or chronic inflammatory change. Reviewed, Interpreted and Dictated by Alejandro Holm III, MD Transcribed by Lili Melara Authenticated and [facility]
== END ==
PROVIDERS: PCP Internal Medicine; Visit Provider Internal Medicine
DX: R93.5 Abnormal findings on diagnostic imaging of other abdominal regions, including retroperitoneum (principal)
CPT/HCPCS: 74150

== ENCOUNTER → 2023-01-31 07:33 | Outpatient (CLI) | payer MEDICARE, SELFPAY ==
--- NOTE | 2023-01-31 07:36 | MM_ITS ---
PROCEDURE INFORMATION: Exam: MG Bilateral Screening 3D Mammography Exam date and time: 01/31/2023 7:32 AM Age: 87 years old Clinical indication: Screening examination. Her mother had breast cancer at age 72 and her sister had breast cancer at age 64. TECHNIQUE: Imaging protocol: Bilateral Screening tomosynthesis and 2D mammography including computer-aided detection (CAD) when performed. COMPARISON: 1. MG MM DIG SCREENING MAMM BI W/CAD 01/25/2022 9:32 AM 2. MG MM DIG SCREENING MAMM BI W/CAD 01/23/2021 8:06 AM 3. MG MY Digital Screen BILAT 01/23/2020 9:57 AM FINDINGS: MAMMOGRAPHY: Breast composition: The breasts are heterogeneously dense, which may obscure small masses. Mass: None. Architectural distortion: None. Calcifications: No suspicious calcifications. Asymmetric density: None. Skin thickening: None. Axillary adenopathy: None. IMPRESSION: No mammographic evidence of malignancy. Annual screening is recommended unless otherwise clinically indicated. ASSESSMENT: BI-RADS Category 1: Negative
== END ==
PROVIDERS: PCP Internal Medicine; Visit Provider Internal Medicine
DX: Z12.31 Encounter for screening mammogram for malignant neoplasm of breast (principal)
CPT/HCPCS: 77063; 77067

== ENCOUNTER → 2023-03-29 09:21 | Outpatient (CLI) | payer MEDICARE, SELFPAY ==
--- NOTE | 2023-03-29 09:28 | CT_ITS ---
FINAL REPORT TECHNIQUE: Axial CT images of the abdomen were obtained with IV contrast only. Coronal and sagittal reformatted images were also obtained. This study was performed with techniques to keep radiation doses as low as reasonably achievable (ALARA). Individualized dose reduction techniques using automated exposure control or adjustment of mA and/or kV according to the patient's size were employed. CLINICAL HISTORY: FU RENAL CYST COMPARISON: 12/02/2022 FINDINGS: There is motion on many sequences which somewhat limits overall image quality. There is scarring versus atelectasis in the lung bases. The liver has an unremarkable appearance, without evidence of mass. There is mild diffuse gallbladder wall thickening, nonspecific, although no evidence of gallstones or biliary ductal dilatation is seen. There is mild prominence of the pancreatic duct, without evidence of a mass seen, nonspecific. The spleen size is within normal limits. There is an 11 mm mass in the lower pole of the right kidney, difficult to characterize secondary to motion, likely a cyst. There is also a small probable cyst in the lower pole of the left kidney. There is no evidence of adenopathy. No abnormal fluid collection is seen. No localized inflammatory processes identified. IMPRESSION: Mild diffuse gallbladder wall thickening, nonspecific. No evidence of gallstones or biliary ductal dilatation is seen. Mild prominence of the pancreatic duct, without evidence of a mass seen, also nonspecific. 11 mm mass in the lower pole of the right kidney, likely a cyst, although exam is limited by motion. Reviewed, Interpreted and Dictated by Alejandro Holm III, MD Transcribed by Supriya Shepard Authenticated and . [facility]
[2023-03-29 09:59] LABS: Blood Urea Nitrogen 20 mg/dl (7-17); Estimated Glomerular Filt Rate 59 ml/min (>60); GFR (African American) 72 ML/MIN (>60)
== END ==
PROVIDERS: PCP Internal Medicine; Visit Provider Internal Medicine
DX: N28.1 Cyst of kidney, acquired (principal)
CPT/HCPCS: 36415; 74160; 82565; 84520; Q9967

== ENCOUNTER → 2023-04-18 13:44 | Outpatient (CLI) | payer MEDICARE, SELFPAY ==
[2023-04-18 15:30] LABS: Carbon Dioxide 32 mmol/L (22.0-30.0); Chloride 101 mmol/L (98-107); Sodium 141 mmol/L (136-145)
[2023-04-18 15:31] LABS: Alanine Aminotransferase 24 U/L (12-78); Albumin Level 4.1 g/dl (3.5-5.0); Albumin/Globulin Ratio 1.6 (1.1-1.8); Alkaline Phosphatase 49 U/L (38-126); Aspartate Amino Transferase 33 U/L (14-36); Bilirubin,Total 0.7 mg/dl (0.2-1.3); Blood Urea Nitrogen 24 mg/dl (7-17); Calcium 9.7 mg/dl (8.4-10.2); Chol/HDL Ratio 2.3 (1-3.5); Cholesterol 146 mg/dl (140-200); Estimated Glomerular Filt Rate 59 ml/min (>60); GFR (African American) 72 ML/MIN (>60); Globulin 2.6 g/dL (1.3-3.2); Glucose 91 mg/dl (74-100); HDL Cholesterol 63 mg/dl (40-60); Total Protein,Serum 6.7 g/dl (6.3-8.2); Triglycerides 92 mg/dl (30-150); VLDL Cholesterol 18 mg/dL (0-40)
[2023-04-18 15:41] LABS: Direct LDL Cholesterol 64.61 mg/dL (100-129)
== END ==
PROVIDERS: PCP Internal Medicine; Visit Provider Internal Medicine
DX: E78.5 Hyperlipidemia, unspecified (principal); I50.22 Chronic systolic (congestive) heart failure; I11.0 Hypertensive heart disease with heart failure
CPT/HCPCS: 80053; 80061

== ENCOUNTER 2023-08-19 11:17 | Outpatient (CLI) | payer MEDICARE, SELFPAY ==
--- NOTE | 2023-08-19 11:22 | XR_ITS ---
FINAL REPORT CLINICAL HISTORY: LT SCIATICA FINDINGS: LUMBAR SPINE Four views demonstrate no acute fracture. There are moderate degenerative changes with multilevel facet arthropathy. There is mild anterolisthesis of L4 on 5. Note is made of rightward curvature. IMPRESSION: Degenerative changes as discussed above. Reviewed, Interpreted and Dictated by Alejandro Holm III, MD Transcribed by Muna Elise Authenticated and [facility]
== END 2023-08-19 23:59 ==
LOC: RAD 11:18
PROVIDERS: PCP Internal Medicine; Visit Provider Internal Medicine
DX: M54.42 Lumbago with sciatica, left side (principal)
CPT/HCPCS: 72110

== ENCOUNTER 2023-10-17 13:20 | Outpatient (CLI) | payer MEDICARE, SELFPAY ==
[2023-10-17 14:04] LABS: Basophils % 0.4 % (0.1-2.0); Eosinophils % 0.4 % (0.1-12.0); Hematocrit 41.5 % (37.0-47.0); Hemoglobin 13.3 g/dL (12.2-16.2); Lymphocytes # 1.5 K/mm3 (0.7-4.5); Lymphocytes % 25.4 % (10-50); Mean Corpuscular Hemoglobin 30.4 pg (27.0-31.2); Mean Corpuscular Volume 95.1 fl (81-99); Mean Platelet Volume 9.3 fl (7.4-10.4); Monocytes # 0.5 K/mm3 (0.1-1.0); Monocytes % 7.8 % (1.7-9.3); Platelet Count 222 K/mm3 (142-424); Red Blood Count 4.37 M/mm3 (4.20-5.40); Red Cell Distribution Width 14.3 % (11.5-17.5); White Blood Count 6.1 K/mm3 (4.8-10.8)
[2023-10-17 14:43] LABS: Alanine Aminotransferase 18 U/L (12-78); Albumin/Globulin Ratio 1.6 (1.1-1.8); Alkaline Phosphatase 45 U/L (38-126); Anion Gap 12.5 mEq/L (5-15); Aspartate Amino Transferase 27 U/L (14-36); Bilirubin,Total 0.7 mg/dl (0.2-1.3); Blood Urea Nitrogen 23 mg/dl (7-17); Calcium 9.7 mg/dl (8.4-10.2); Carbon Dioxide 32 mmol/L (22.0-30.0); Chloride 102 mmol/L (98-107); Chol/HDL Ratio 1.9 (1-3.5); Cholesterol 184 mg/dl (140-200); Estimated Glomerular Filt Rate 68 ml/min (>60); GFR (African American) 82 ML/MIN (>60); Globulin 2.5 g/dL (1.3-3.2); Glucose 75 mg/dl (74-100); HDL Cholesterol 99 mg/dl (40-60); Potassium 4.5 mmoL/L (3.5-5.1); Sodium 142 mmol/L (136-145); Total Protein,Serum 6.5 g/dl (6.3-8.2); Triglycerides 101 mg/dl (30-150); VLDL Cholesterol 20 mg/dL (0-40)
[2023-10-17 14:54] LABS: Direct LDL Cholesterol 77.75 mg/dL (100-129)
== END 2023-10-17 23:59 | disposition home or self-care (01) ==
LOC: LAB.DROPOF 13:21
PROVIDERS: PCP Internal Medicine; Visit Provider Internal Medicine
DX: I11.0 Hypertensive heart disease with heart failure (principal); I50.22 Chronic systolic (congestive) heart failure; I35.1 Nonrheumatic aortic (valve) insufficiency; J30.9 Allergic rhinitis, unspecified; K21.9 Gastro-esophageal reflux disease without esophagitis; G60.9 Hereditary and idiopathic neuropathy, unspecified; E78.5 Hyperlipidemia, unspecified
CPT/HCPCS: 80053; 80061; 85025

== ENCOUNTER 2024-01-12 09:22 | Outpatient (CLI) | payer MEDICARE, SELFPAY ==
[2024-01-19 01:09] LABS: D001-IgE D pteronyssinus <0.10 kU/L (Class 0); D002-IgE D farinae <0.10 kU/L (Class 0); E001-IgE Cat Dander <0.10 kU/L (Class 0); E005-IgE Dog Dander <0.10 kU/L (Class 0); E072-IgE Mouse Urine <0.10 kU/L (Class 0); G002-IgE Bermuda Grass <0.10 kU/L (Class 0); G006-IgE Timothy Grass <0.10 kU/L (Class 0); I006-IgE Cockroach, German <0.10 kU/L (Class 0); Immunoglobulin E, Total 45 IU/mL (6-495); M001-IgE Penicillium chrysogen <0.10 kU/L (Class 0); M002-IgE Cladosporium herbarum <0.10 kU/L (Class 0); M003-IgE Aspergillus fumigatus <0.10 kU/L (Class 0); M006-IgE Alternaria alternata <0.10 kU/L (Class 0); T001-IgE Maple/Box Elder <0.10 kU/L (Class 0); T003-IgE Common Silver Birch <0.10 kU/L (Class 0); T006-IgE Cedar, Mountain <0.10 kU/L (Class 0); T007-IgE Oak, White <0.10 kU/L (Class 0); T008-IgE Elm, American <0.10 kU/L (Class 0); T010-IgE Walnut <0.10 kU/L (Class 0); T011-IgE Maple Leaf Sycamore <0.10 kU/L (Class 0); T014-IgE Cottonwood <0.10 kU/L (Class 0); T015-IgE Ash, White <0.10 kU/L (Class 0); T022-IgE Pecan, Hickory <0.10 kU/L (Class 0); T070-IgE White Mulberry <0.10 kU/L (Class 0); W001-IgE Ragweed, Short <0.10 kU/L (Class 0); W011-IgE Thistle, Russian <0.10 kU/L (Class 0); W014-IgE Pigweed, Common <0.10 kU/L (Class 0); W018-IgE Sheep Sorrel <0.10 kU/L (Class 0)
== END 2024-01-12 23:59 | disposition home or self-care (01) ==
LOC: LAB 09:23
PROVIDERS: PCP Internal Medicine; Visit Provider Nurse Practitioner
DX: J30.9 Allergic rhinitis, unspecified (principal)
CPT/HCPCS: 36415; 82785; 86003

== ENCOUNTER 2024-01-25 13:31 | Outpatient (CLI) | payer MEDICARE, SELFPAY ==
--- NOTE | 2024-01-25 13:31 | CT_ITS ---
FINAL REPORT TECHNIQUE: Axial CT images were obtained through the sinuses/facial bones. Coronal reformats were obtained. This study was performed with techniques to keep radiation doses as low as reasonably achievable (ALARA). Individualized dose reduction techniques using automated exposure control or adjustment of mA and/or kV according to the patient's size were employed. CLINICAL HISTORY: Nasal Congestion COMPARISON: None FINDINGS: The paranasal sinuses are well aerated. There are no air-fluid levels. The ostiomeatal units are patent. The nasal septum is not significantly deviated. No fractures are identified. IMPRESSION: No acute process. Reviewed, Interpreted and Dictated by Kadeem Bell MD Transcribed by Nini De Jesus Authenticated and [facility]
== END 2024-01-25 23:59 | disposition home or self-care (01) ==
LOC: RAD 13:31
PROVIDERS: PCP Internal Medicine; Visit Provider Nurse Practitioner
DX: R09.81 Nasal congestion (principal); J32.9 Chronic sinusitis, unspecified
CPT/HCPCS: 70486

== ENCOUNTER 2024-02-21 08:04 | Outpatient (CLI) | payer MEDICARE, SELFPAY ==
--- NOTE | 2024-02-21 08:04 | MM_ITS ---
PROCEDURE INFORMATION: Exam: MG Bilateral Screening 3D Mammography Exam date and time: 02/21/2024 8:00 AM Age: 88 years old Clinical indication: Screening examination TECHNIQUE: Imaging protocol: Bilateral Screening tomosynthesis and 2D mammography including computer-aided detection (CAD) when performed. COMPARISON: 1. MG MM DIG SCREENING MAMM BI W/CAD 01/31/2023 7:32 AM 2. MG MM DIG SCREENING MAMM BI W/CAD 01/25/2022 9:32 AM FINDINGS: MAMMOGRAPHY: Breast composition: The breasts are heterogeneously dense, which may obscure small masses. Mass: None. Architectural distortion: None. Calcifications: No suspicious calcifications. Asymmetric density: None. Skin thickening: None. Axillary adenopathy: None. IMPRESSION: No mammographic evidence of malignancy. Annual screening is recommended unless otherwise clinically indicated. ASSESSMENT: BI-RADS Category 1: Negative.
== END 2024-02-21 23:59 | disposition home or self-care (01) ==
LOC: RAD 08:04
PROVIDERS: PCP Internal Medicine; Visit Provider Internal Medicine
DX: Z12.31 Encounter for screening mammogram for malignant neoplasm of breast (principal)
CPT/HCPCS: 77063; 77067

== ENCOUNTER 2024-04-18 09:00 | Outpatient (CLI) | payer MEDICARE, SELFPAY ==
[2024-04-18 17:13] LABS: Albumin Level 4.2 g/dl (3.5-5.0); Chloride 103 mmol/L (98-107); Potassium 3.8 mmoL/L (3.5-5.1); Sodium 140 mmol/L (136-145)
[2024-04-18 17:15] LABS: Alanine Aminotransferase 19 U/L (12-78); Anion Gap 10.8 mEq/L (5-15); Aspartate Amino Transferase 26 U/L (14-36); Blood Urea Nitrogen 27 mg/dl (7-17); Carbon Dioxide 30 mmol/L (22.0-30.0); Estimated Glomerular Filt Rate 52 ml/min (>60); GFR (African American) 63 ML/MIN (>60)
[2024-04-18 17:16] LABS: Albumin/Globulin Ratio 1.8 (1.1-1.8); Alkaline Phosphatase 50 U/L (38-126); Bilirubin,Total 0.8 mg/dl (0.2-1.3); Calcium 9.5 mg/dl (8.4-10.2); Cholesterol 136 mg/dl (140-200); Globulin 2.4 g/dL (1.3-3.2); Glucose 93 mg/dl (74-100); HDL Cholesterol 67 mg/dl (40-60); Total Protein,Serum 6.6 g/dl (6.3-8.2); Triglycerides 63 mg/dl (30-150); VLDL Cholesterol 13 mg/dL (0-40)
[2024-04-18 18:19] LABS: Direct LDL Cholesterol 52.31 mg/dL (100-129)
[2024-04-18 19:17] LABS: Vitamin B12 > 1000 pg/mL (239-931)
== END 2024-04-18 23:59 | disposition home or self-care (01) ==
LOC: LAB.DROPOF 04-19 13:06
PROVIDERS: PCP Internal Medicine; Visit Provider Internal Medicine
DX: E78.5 Hyperlipidemia, unspecified (principal); G62.9 Polyneuropathy, unspecified; I10 Essential (primary) hypertension
CPT/HCPCS: 80053; 80061; 82607

== ENCOUNTER 2024-04-23 11:03 | Outpatient (CLI) | payer MEDICARE, SELFPAY ==
--- NOTE | 2024-04-23 11:24 | PC.NURSE ---
Pt unable to follow comands to perform PFT, Dr Cruz' office made aware
== END 2024-04-23 23:59 | disposition home or self-care (01) ==
LOC: RT 11:03
PROVIDERS: PCP Internal Medicine; Visit Provider Internal Medicine
DX: R06.02 Shortness of breath (principal)

== ENCOUNTER 2024-08-20 07:08 | Outpatient (CLI) | payer MEDICARE, SELFPAY ==
--- NOTE | 2024-08-20 07:09 | CT_ITS ---
FINAL REPORT TECHNIQUE: Axial CT without IV contrast administration. Coronal and sagittal images were obtained and reviewed. This study was performed with techniques to keep radiation doses as low as reasonably achievable, (ALARA). Individualized dose reduction techniques using automated exposure control or adjustment of mA and/or kV according to the patient''s size were employed. CLINICAL HISTORY: Shortness of breath COMPARISON: None FINDINGS: There is a 3 mm nodule in the posterior segment of the left upper lobe on image 22 of series 2. Mild lingular scarring is noted. The right lung is clear. No pleural or pericardial effusion is seen. No adenopathy or effusion is noted. Incidental note is made of a nodule in the left upper inner quadrant of the left breast. IMPRESSION: Nonspecific 3 mm left upper lobe nodule. Incidental left breast nodule. If further evaluation is desired, diagnostic mammogram could be considered. Reviewed, Interpreted and Dictated by Coby Sharpe MD Transcribed by Nini De Jesus Authenticated and [facility]
== END 2024-08-20 23:59 | disposition home or self-care (01) ==
LOC: RAD 07:09
PROVIDERS: PCP Internal Medicine; Visit Provider Physician Assistant
DX: I50.30 Unspecified diastolic (congestive) heart failure (principal); R06.09 Other forms of dyspnea
CPT/HCPCS: 71250

== ENCOUNTER 2024-08-24 14:35 | Outpatient (CLI) | payer MEDICARE, SELFPAY ==
--- NOTE | 2024-08-24 | MM_ITS ---
PROCEDURE INFORMATION: Exam: MG Left Diagnostic Breast Tomosynthesis Exam date and time: 08/24/2024 2:58 PM Age: 88 years old Clinical indication: Lt breast nodule seen on CT of chest 08/20/24 TECHNIQUE: Imaging protocol: Left Diagnostic tomosynthesis and 2D mammography including computer-aided detection (CAD) when performed. Unilateral or bilateral exam. COMPARISON: 1. MG MM DIG SCREENING MAMM BI W/CAD 02/21/2024 8:00 AM 2. MG MM DIG SCREENING MAMM BI W/CAD 01/31/2023 7:32 AM FINDINGS: MAMMOGRAPHY: Breast composition: There are scattered areas of fibroglandular density. Breast mammogram findings: There is no stellate mass, architectural distortion or suspicious microcalcifications to suggest malignancy. No skin thickening or axillary adenopathy. Additional spot compression views of the left lateral and medial breast as well as the left upper breast does not demonstrate any definitive new persistent nodularity compared to the prior mammogram dated 2023. IMPRESSION: Patient to return for left upper inner quadrant sonogram for further evaluation of an incidental nodule seen, by report, on CT scan of the chest dated 08/20/2024 ASSESSMENT: BI-RADS Category 0: Incomplete- Need Additional Imaging Evaluation
== END 2024-08-24 23:59 | disposition home or self-care (01) ==
LOC: RAD 14:36
PROVIDERS: PCP Internal Medicine; Visit Provider Internal Medicine
DX: N63.22 Unspecified lump in the left breast, upper inner quadrant (principal)
CPT/HCPCS: 77061; 77065; G0279

== ENCOUNTER 2024-09-07 10:19 | Outpatient (CLI) | payer MEDICARE, SELFPAY ==
--- NOTE | 2024-09-07 11:00 | US_ITS ---
PROCEDURE INFORMATION: Exam: US Left Breast, Complete Exam date and time: 09/07/2024 10:15 AM Age: 88 years old Clinical indication: Recent CT scan of the chest demonstrate a 0.9 cm partially circumscribed mass in the posterior left upper inner quadrant TECHNIQUE: Imaging protocol: Complete ultrasound of all four quadrants of the left breast and the retroareolar regions, including ultrasound of the axilla when performed. COMPARISON: MG MM DIG MAMM DX UNILAT LT CAD 08/24/2024 2:58 PM FINDINGS: ULTRASOUND: Breast ultrasound findings: Sonographic images of the left breast including the retroareolar region, all 4 quadrants and the axilla do not demonstrate any solid masses. 0.4 cm cyst in the left 11 o'clock periareolar region. 0.4 cm cyst in the left 9 o'clock axis 2 cm from the nipple. In the left 10 o'clock axis 5 cm from the nipple is a suggestion of a predominantly echogenic mass measuring 0.6 x 0.8 x 0.5 cm in dimension. This may correlate with the mass seen on CT scan of the chest. No architectural distortion or acoustical shadowing. No skin thickening or axillary adenopathy. IMPRESSION: Indeterminate predominantly echogenic mass in the left upper inner quadrant. Ultrasound-guided core biopsy is recommended for further evaluation. ASSESSMENT: BI-RADS Category 4: Suspicious.
== END 2024-09-07 23:59 | disposition home or self-care (01) ==
LOC: RAD 10:20
PROVIDERS: PCP Internal Medicine; Visit Provider Internal Medicine
DX: R92.8 Other abnormal and inconclusive findings on diagnostic imaging of breast (principal)
CPT/HCPCS: 76641

== ENCOUNTER 2024-09-21 07:19 | Outpatient (CLI) | payer MEDICARE, SELFPAY ==
--- NOTE | 2024-09-21 | MM_ITS ---
FINAL REPORT CLINICAL HISTORY: clip placement, s/p ultrasound bx FINDINGS: MAMMOGRAM LEFT TECHNIQUE: Standard digital 2-D views COMPARISON: 08/24/2024 DENSITY: There are scattered areas of fibroglandular density FINDINGS: Post biopsy marker clip is noted to be in satisfactory position. Postbiopsy changes are noted. IMPRESSION: Biopsy marker clip in good position ASSESSMENT: A post-procedure mammogram is used to confirm the position and deployment of a breast tissue marker after a biopsy RECOMMENDATION: 6 month mammographic follow-up is recommended as part of normal post benign biopsy imaging surveillance Authenticated and [facility]
--- NOTE | 2024-09-21 08:00 | US_ITS ---
FINAL REPORT CLINICAL HISTORY: New left breast nodule -- LT BREAST BIOPSY -- DR GUY RAPHAEL -- 10:00 -- DUAL CORE FINDINGS: ULTRASOUND-GUIDED LEFT BREAST CORE BIOPSY TECHNIQUE: Limited images were obtained to localize region of interest. The left breast was prepped in a routine sterile fashion and locally anesthetized with 1% lidocaine. Standard written informed consent was obtained. The biopsy needle was positioned within the outer periphery of the lesion. A total of 3 passes were made with a 16 gauge core biopsy needle. A biopsy marker clip was deployed in satisfactory position. Postbiopsy mammogram showed postbiopsy changes with clip in satisfactory position. Procedure was well tolerated . CONCLUSION: 1. Technically successful ultrasound guided core biopsy of left breast lesion as above. 2. Biopsy marker clip deployed Histopathology reveals dense fibrosis without atypia or carcinoma. 6 month mammographic follow-up is recommended as part of normal post benign biopsy imaging surveillance Authenticated and [facility]
== END 2024-09-21 23:59 | disposition home or self-care (01) ==
LOC: RAD 07:20
PROVIDERS: PCP Internal Medicine; Visit Provider Internal Medicine
DX: N63.22 Unspecified lump in the left breast, upper inner quadrant (principal)
CPT/HCPCS: 19083; 77065; 88305

== ENCOUNTER 2024-10-17 13:16 | Outpatient (CLI) | payer MEDICARE, SELFPAY ==
[2024-10-17 12:36] LABS: Basophils % 0.5 % (0.1-2.0); Eosinophils # 0.3 Kmm3 (0.0-0.4); Eosinophils % 5.7 % (0.1-12.0); Hematocrit 38.8 % (37.0-47.0); Hemoglobin 12.5 g/dL (12.2-16.2); Immature Granulocytes # 0 10^3uL; Immature Granulocytes % 0 %; Lymphocytes % 23.7 % (10-50); Mean Corpuscular HGB Conc 32.2 g/dL (31.8-35.4); Mean Corpuscular Volume 93.3 fl (81-99); Mean Platelet Volume 9.8 fl (7.4-10.4); Monocytes # 0.4 K/mm3 (0.1-1.0); Monocytes % 9.2 % (1.7-9.3); Neutrophils # 2.7 K/mm3 (1.8-7.8); Neutrophils % 60.9 % (37.0-80.0); Nucleated Red Blood Cells # 0 10^3/uL; Nucleated Red Blood Cells % 0 %; Platelet Count 164 K/mm3 (142-424); Red Blood Count 4.16 M/mm3 (4.20-5.40); Red Cell Distribution Width 13.2 % (11.5-17.5); Red Cell Distribution Width-SD 45.5 fL; White Blood Count 4.4 K/mm3 (4.8-10.8)
[2024-10-17 13:00] LABS: Albumin Level 3.9 g/dl (3.5-5.0); Chloride 107 mmol/L (98-107)
[2024-10-17 13:01] LABS: Potassium 3.9 mmoL/L (3.5-5.1); Sodium 139 mmol/L (136-145)
[2024-10-17 13:03] LABS: Alanine Aminotransferase 18 U/L (12-78); Anion Gap 6.9 mEq/L (5-15); Aspartate Amino Transferase 26 U/L (14-36); Bilirubin,Total 0.5 mg/dl (0.2-1.3); Blood Urea Nitrogen 29 mg/dl (7-17); Carbon Dioxide 29 mmol/L (22.0-30.0); Estimated Glomerular Filt Rate 52 ml/min (>60); GFR (African American) 63 ML/MIN (>60)
[2024-10-17 13:04] LABS: Albumin/Globulin Ratio 1.7 (1.1-1.8); Alkaline Phosphatase 58 U/L (38-126); Calcium 9.4 mg/dl (8.4-10.2); Chol/HDL Ratio 2.2 (1-3.5); Cholesterol 126 mg/dl (140-200); Globulin 2.3 g/dL (1.3-3.2); Glucose 97 mg/dl (74-100); HDL Cholesterol 57 mg/dl (40-60); Total Protein,Serum 6.2 g/dl (6.3-8.2); Triglycerides 58 mg/dl (30-150); VLDL Cholesterol 12 mg/dL (0-40)
[2024-10-17 13:21] LABS: Direct LDL Cholesterol 47.35 mg/dL (100-129)
== END 2024-10-17 23:59 | disposition home or self-care (01) ==
LOC: LAB.DROPOF 10-19 13:16
PROVIDERS: PCP Internal Medicine; Visit Provider Internal Medicine
DX: I11.9 Hypertensive heart disease without heart failure (principal); E78.5 Hyperlipidemia, unspecified; I25.10 Atherosclerotic heart disease of native coronary artery without angina pectoris; I50.30 Unspecified diastolic (congestive) heart failure; G62.9 Polyneuropathy, unspecified
CPT/HCPCS: 80053; 80061; 85025

== ENCOUNTER 2025-03-05 13:08 | Outpatient (CLI) | payer MEDICARE, SELFPAY ==
--- OUTSIDE RECORDS SUMMARY | 2025-03-05 13:20 | XMS_ITS | Clinical Summary ---
Author Organization [facility] Address [address] [place] [address] Care Team Providers Care Director Translational Name Role Phone Jose Ramon Cruz MD Primary Care Provider [phone] Social History Tobacco Use Types Packs/Day Years Used Date Smoking Tobacco: Never Assessed Comments Unknown Sex and Gender Information Value Date Recorded Sex Assigned at Not on file Legal Sex Female 5:56 PM EDT Gender Identity Not on file Sexual Orientation Not on file Plan of Treatment Health Maintenance Due Date Last Done Comments [facility]-Bone Density Scan 1935 [facility]-Depression Screening 1935 [facility]-/Child/Adol SDOH Screenings 1935 [facility]- SDOH Screenings 09/28/1953 [facility]-Adult SDOH Screenings 09/28/1953 [facility]-DTaP,Tdap,and Td Vaccines (1 - Tdap) 09/28/1954 [facility]-Pneumococcal Vaccine: 50+ Years (1 of 1 - PCV) 09/28/1985 [facility]-Zoster Vaccines (1 of 2) 09/28/1985 [facility]-RSV Vaccine: 60+ Years or (1 - 1-dose 75+ series) 09/28/2010 [id number] Vaccine ( - 2024- season) 2025 04/09/2022, 10/16/2021, 04/20/2021, Additional history exists [facility]-Influenza Vaccine (#1) 2025 HPV Vaccines Aged Out No longer eligi ble based on patient's age to complete this topic [facility]-HIB Vaccines Aged Out No longer e ligible based on patient's age to complete this topic [facility]-Hepatitis A Vaccines Aged Out No longer eligible based on patient's age to complete this topic [facility]-IPV Vaccines Aged Out No longer e ligible based on patient's age to complete this topic [facility]-Rotavirus Vaccines Aged Out No lo nger eligible based on patient's age to complete this topic Insurance [employer] MEDICARE Care Teams Director Translational Relationship Specialty Start Date End Date Jose Ramon Cruz MD [address] [place] [address] PCP - General 10/17/20
--- NOTE | 2025-03-05 13:30 | MM_ITS ---
PROCEDURE INFORMATION: Exam: MG Bilateral Screening 3D Mammography Exam date and time: 03/05/2025 1:21 PM Age: 89 years old Clinical indication: Screening examination. TECHNIQUE: Imaging protocol: Bilateral Screening tomosynthesis and 2D mammography including computer-aided detection (CAD) when performed. COMPARISON: 1. MG MM CLIP PLACEMENT LT 09/21/2024 8:38 AM 2. MG MM DIG MAMM DX UNILAT LT CAD 08/24/2024 2:58 PM FINDINGS: MAMMOGRAPHY: Breast composition: There are scattered areas of fibroglandular density. Mass: None. Architectural distortion: None. Calcifications: No suspicious calcifications. Asymmetric density: None. Skin thickening: None. Axillary adenopathy: None. IMPRESSION: No mammographic evidence of malignancy. Annual screening is recommended unless otherwise clinically indicated. ASSESSMENT: BI-RADS Category 1: Negative.
== END 2025-03-05 23:59 | disposition home or self-care (01) ==
LOC: RAD 13:09
PROVIDERS: PCP Internal Medicine; Visit Provider Internal Medicine
DX: Z12.31 Encounter for screening mammogram for malignant neoplasm of breast (principal); R92.323 Mammographic fibroglandular density, bilateral breasts
CPT/HCPCS: 77063; 77067

== ENCOUNTER 2025-04-22 09:00 | Outpatient (CLI) | payer MEDICARE, SELFPAY ==
[2025-04-22 17:35] LABS: Alkaline Phosphatase 53 U/L (38-126); Bilirubin,Total 0.8 mg/dl (0.2-1.3); Calcium 9.6 mg/dl (8.4-10.2); Cholesterol 124 mg/dl (140-200); Glucose 89 mg/dl (74-100); HDL Cholesterol 62 mg/dl (40-60); Triglycerides 62 mg/dl (30-150)
[2025-04-22 17:57] LABS: Alanine Aminotransferase 21 U/L (12-78); Albumin Level 4.1 g/dl (3.5-5.0); Albumin/Globulin Ratio 1.6 (1.1-1.8); Anion Gap 12.0 mEq/L (5-15); Aspartate Amino Transferase 30 U/L (14-36); Blood Urea Nitrogen 17 mg/dl (7-17); Carbon Dioxide 28 mmol/L (22.0-30.0); Chloride 101 mmol/L (98-107); Creatinine,Serum 0.90 mg/dl (0.52-1.04); Estimated Glomerular Filt Rate 59 ml/min (>60); GFR (African American) 71 ML/MIN (>60); Globulin 2.5 g/dL (1.3-3.2); Potassium 4.0 mmoL/L (3.5-5.1); Sodium 137 mmol/L (136-145); Total Protein,Serum 6.6 g/dl (6.3-8.2)
== END 2025-04-22 23:59 ==
LOC: LAB.DROPOF 04-23 09:14
PROVIDERS: PCP Internal Medicine; Visit Provider Internal Medicine
DX: I50.30 Unspecified diastolic (congestive) heart failure (principal); E78.5 Hyperlipidemia, unspecified; G62.9 Polyneuropathy, unspecified
CPT/HCPCS: 80053; 80061